=== PATIENT | female | born 1975 | race Caucasian/White ===

== ENCOUNTER 2017-03-07 16:08 | Emergency (ER) | payer BC, OTHER ==
[2017-03-07 17:11] LABS: APPEARANCE,URINE CLEAR; BILIRUBIN,URINE NEGATIVE (NEGATIVE); GLUCOSE, URINE NEGATIVE (NEGATIVE); KETONES,URINE NEGATIVE (NEGATIVE); LEUKOCYTE ESTERASE,URINE NEGATIVE (NEGATIVE); NITRITE,URINE NEGATIVE (NEGATIVE); PROTEIN,URINE NEGATIVE (NEGATIVE); URINE SPECIFIC GRAVITY 1.005; UROBILINOGEN,URINE NEGATIVE mg/dL (<2.0)
--- NOTE | 2017-03-07 17:50 | ER Document Report ---
ED Medical Screen (RME) - General Chief Complaint: Flank Pain Stated Complaint: BACK PAIN, FLANK PAIN,NAUSEA Notes: 41-year-old female patient reports flank pain off and on for the past 5 days. She states the pain goes around to the front and the abdomen on both sides. She thinks she may have passed the stone several days ago. She also reports seeing what looks like sand in her urine. She has been drinking a lot of fluids. Tylenol does help some. She does not have a history of kidney stones. 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 Brief exam shows her to be quite tender and palpating the paraspinal lumbar muscles. I have greeted and performed a rapid initial assessment of this patient. A comprehensive ED assessment and evaluation of the patient, analysis of test results and completion of the medical decision making process will be conducted by additional ED providers. TRAVEL OUTSIDE OF THE [place] IN LAST 30 DAYS: No - Related Data Allergies/Adverse Reactions: bupropion HCl [From Wellbutrin] Allergy (Severe, Verified 03/07/17 17:43) Hives Penicillins Allergy (Severe, Verified 03/07/17 17:43) Anaphylaxis esomeprazole [From Nexium] Allergy (Intermediate, Verified 03/07/17 17:43) palpitations latex [Latex] Allergy (Intermediate, Verified 03/07/17 17:43) ICHING Past Medical History - Social History Family history: CAD, CVA, Hypertension - Past Medical History Cardiac Medical History: Denies: Hx Coronary Artery Disease, Hx Heart Attack, Hx Hypertension Pulmonary Medical History: Reports: Hx Bronchitis - 2009, Hx Pneumonia - APRIL 2013 Denies: Hx Asthma, Hx COPD Neurological Medical History: Denies: Hx Cerebrovascular Accident, Hx Seizures Renal/ Medical History: Denies: Hx Peritoneal Dialysis GI Medical History: Reports: Hx Gastroesophageal Reflux Disease, Hx Endoscopy Musculoskeltal Medical History: Reports Hx Arthritis - KNEES Psychiatric Medical History: Reports: Hx Depression Past Surgical History: Reports: Hx Gynecologic Surgery, Hx Oral Surgery. Denies : Hx Cholecystectomy, Hx Hysterectomy - Immunizations Hx Diphtheria, Pertussis, Tetanus Vaccination: Yes - unk Physical Exam - Vital signs Vitals: Temp Pulse Resp BP Pulse Ox 98.8 F 89 16 122/80 100 03/07/17 16:43 03/07/17 16:43 03/07/17 16:43 03/07/17 16:43 03/07/17 16:43 Course - Vital Signs Vital signs: Temp Pulse Resp BP Pulse Ox 98.8 F 89 16 122/80 100 03/07/17 16:43 03/07/17 16:43 03/07/17 16:43 03/07/17 16:43 03/07/17 16:43 - Laboratory Laboratory results interpreted by me: 03/07/17 16:44 Urine Ascorbic Acid 40 H
[2017-03-07 18:09] LABS: ABSOLUTE LYMPHOCYTES (AUTO) 1.8 10^3/uL (0.5-4.7); ABSOLUTE MONOCYTES (AUTO) 0.3 10^3/uL (0.1-1.4); ABSOLUTE NEUT (AUTO) 6.2 10^3/uL (1.7-8.2); BASOPHILS % (AUTO) 0.4 % (0-2); EOSINOPHILS % (AUTO) 0.4 % (0-6); LYMPHOCYTES % (AUTO) 21.7 % (13-45); MEAN CORPUSCULAR VOLUME 88 fl (80-97); MONOCYTES % (AUTO) 3.1 % (3-13); RED BLOOD COUNT 4.66 10^6/uL (3.72-5.28); RED CELL DISTRIBUTION WIDTH 13.6 % (11.5-14.0); SEGMENTED NEUTROPHILS % (AUTO) 74.4 % (42-78); WHITE BLOOD COUNT 8.4 10^3/uL (4.0-10.5)
[2017-03-07 18:30] LABS: ALANINE AMINOTRANSFERASE 44 U/L (9-52); ALBUMIN 4.8 g/dL (3.5-5.0); ALKALINE PHOSPHATASE 80 U/L (38-126); ANION GAP 13 (5-19); ASPARTATE AMINO TRANSFERASE 33 U/L (14-36); BILIRUBIN,DIRECT 0.2 mg/dL (0.0-0.4); BILIRUBIN,TOTAL 0.6 mg/dL (0.2-1.3); BLOOD UREA NITROGEN 10 mg/dL (7-20); CALCIUM 9.6 mg/dL (8.4-10.2); CARBON DIOXIDE 27 mmol/L (22-30); CHLORIDE 104 mmol/L (98-107); CREATININE RESULT 0.55 mg/dL (0.52-1.25); GLUCOSE 94 mg/dL (75-110); POTASSIUM 4.5 mmol/L (3.6-5.0); SODIUM 143.6 mmol/L (137-145); TOTAL PROTEIN 7.6 g/dL (6.3-8.2)
[2017-03-07] MEDS ORDERED: ACETAMINOPHEN 325 MG TABLET PO ONE (22:51)
--- NOTE | 2017-03-07 22:53 | ER Document Report ---
ED General - General Chief Complaint: Flank Pain Stated Complaint: BACK PAIN, FLANK PAIN,NAUSEA Notes: Patient is a 41-year-old female with past medical history of choledocholithiasis status post cholecystectomy who presents with 3 days of bilateral flank pain worse on the right which radiates into her bilateral lower abdomen. No history of similar symptoms in the past. Nothing improves or worsens her pain. She has not seen her primary doctor regarding today's concerns. She states that she feels that she has passed several kidney stones during this time period and has had "shellie" urine. Notes associated nausea without vomiting. No chest pain, shortness of breath, pleuritic pain, fever, or diarrhea. She is continued to pass flatus and have normal bowel movements. She has continued to tolerate oral intake. TRAVEL OUTSIDE OF THE [place] IN LAST 30 DAYS: No - Related Data Allergies/Adverse Reactions: bupropion HCl [From Wellbutrin] Allergy (Severe, Verified 03/07/17 17:43) Hives Penicillins Allergy (Severe, Verified 03/07/17 17:43) Anaphylaxis esomeprazole [From Nexium] Allergy (Intermediate, Verified 03/07/17 17:43) palpitations latex [Latex] Allergy (Intermediate, Verified 03/07/17 17:43) ICHING Past Medical History - General Information source: Patient - Social History Smoking Status: Never Smoker Frequency of alcohol use: None Drug Abuse: None Lives with: Spouse/Significant other Family History: Reviewed & Not Pertinent Patient has suicidal ideation: No Patient has homicidal ideation: No - Past Medical History Cardiac Medical History: Denies: Hx Coronary Artery Disease, Hx Heart Attack, Hx Hypertension Pulmonary Medical History: Reports: Hx Bronchitis - 2009, Hx Pneumonia - APRIL 2013 Denies: Hx Asthma, Hx COPD Neurological Medical History: Denies: Hx Cerebrovascular Accident, Hx Seizures Renal/ Medical History: Denies: Hx Peritoneal Dialysis GI Medical History: Reports: Hx Gastroesophageal Reflux Disease, Hx Endoscopy Musculoskeltal Medical History: Reports Hx Arthritis - KNEES Psychiatric Medical History: Reports: Hx Depression Past Surgical History: Reports: Hx Gynecologic Surgery, Hx Oral Surgery. Denies : Hx Cholecystectomy, Hx Hysterectomy - Immunizations Hx Diphtheria, Pertussis, Tetanus Vaccination: Yes - unk Review of Systems - Review of Systems Notes: Constitutional: Negative for fever. HENT: Negative for sore throat. Eyes: Negative for visual changes. Cardiovascular: Negative for chest pain. Respiratory: Negative for shortness of breath. Gastrointestinal: Positive for bilateral flank pain and nausea Genitourinary: Negative for dysuria. Musculoskeletal: Negative for back pain. Skin: Negative for rash. Neurological: Negative for headaches, weakness or numbness. 10 point ROS negative except as marked above and in HPI. Physical Exam - Vital signs Vitals: Temp Pulse Resp BP Pulse Ox 98.8 F 89 16 122/80 100 03/07/17 16:43 03/07/17 16:43 03/07/17 16:43 03/07/17 16:43 03/07/17 16:43 Interpretation: Normal Notes: PHYSICAL EXAMINATION: GENERAL: Well-appearing, well-nourished and in no acute distress. HEAD: Atraumatic, normocephalic. EYES: Pupils equal round and reactive to light, extraocular movements intact, sclera anicteric, conjunctiva are normal. ENT: nares patent, oropharynx clear without exudates. Moist mucous membranes. NECK: Normal range of motion, supple without lymphadenopathy LUNGS: Breath sounds clear to auscultation bilaterally and equal. No wheezes rales or rhonchi. HEART: Regular rate and rhythm without murmurs ABDOMEN: Bilateral mild CVA tenderness. Abdomen is Soft, nontender, normoactive bowel sounds. No guarding, no rebound. No masses appreciated. EXTREMITIES: Normal range of motion, no pitting or edema. No cyanosis. NEUROLOGICAL: No focal neurological deficits. Moves all extremities spontaneously and on command. PSYCH: Normal mood, normal affect. SKIN: Warm, Dry, normal turgor, no rashes or lesions noted. Course - Re-evaluation Re-evalutation: 03/07/17 22:52 Patient presents undifferentiated bilateral flank pain worse on the left. On exam she is overall very well in appearance, vitals within normal limits and in no acute distress. Conversing with ease. She has no focal abdominal tenderness. No rebound or guarding. She does have mild bilateral CVA tenderness worse on the right. I do not suspect an acute bowel perforation, bowel obstruction, mesenteric ischemia, pancreatitis, acute hepatitis, ovarian torsion, ruptured ovarian cyst or TOA based on her exam or history. She has already had a cholecystectomy 2 years ago. I did not suspect a retained stone given the distance of her cholecystectomy. Patient has no prior history of kidney stones and given her urine does not contain blood and she has somewhat of an undifferentiated picture, we have reviewed the risks and benefits of proceeding with contrasted CT. She has elected to obtain the study. 03/08/17 00:07 CT scan unremarkable which is what I had anticipated based on clinical history and exam. No evidence of nephrolithiasis. Patient's pain is overall improved at this time. At this time the exact etiology of her pain is uncertain and I have informed the patient that she needs to return to the emergency department immediately for any new or worsening symptoms as we have not had a clear diagnosis for her symptoms today. I do not suspect an acute life-threatening diagnosis at this time based on her vitals, exam, clinical history, negative CT imaging, and her overall well appearance.At this time will discharge with return precautions and follow-up recommendations. Verbal discharge instructions given a the bedside and opportunity for questions given. Medication warnings reviewed. Patient is in agreement with this plan and has verbalized understanding of return precautions and the need for primary care follow-up in the next 24-72 hours. - Vital Signs Vital signs: Temp Pulse Resp BP Pulse Ox 98 F 79 16 128/74 H 100 03/08/17 00:25 03/08/17 00:25 03/08/17 00:25 03/08/17 00:25 03/08/17 00:25 - Laboratory Result Diagrams: 03/07/17 17:58 03/07/17 17:58 Laboratory results interpreted by me: 03/07/17 16:44 Urine Ascorbic Acid 40 H - Diagnostic Test Radiology reviewed: Reports reviewed Discharge - Discharge Clinical Impression: Bilateral flank pain Condition: Good Disposition: HOME, SELF-CARE Additional Instructions: The exact cause of her pain is unclear today but your labs, CT scan, and history do not suggest any acute life-threatening cause. I suspect that this may be related to the muscles of your back or possible kidney stones that you have already passed. You can take Tylenol 1000 mg every 6 hours as needed for pain. You can use the muscle relaxants at night as needed for pain that is not controlled by Tylenol. Return if your pain fails to improve, you have worsening pain, persistent vomiting, fever greater than 101F, or any other symptoms that are worrisome to you. Please follow-up with your primary care doctor in the next 1-2 days. Prescriptions: Cyclobenzaprine HCl [Flexeril 10 mg Tablet] 10 mg PO QHS PRN #15 tab PRN Reason: Referrals: TOM MENDES MD [Primary Care Provider] - Follow up tomorrow
[2017-03-08 01:25] VITALS: BP 128/74
== END 2017-03-08 00:25 | disposition home or self-care (01) ==
LOC: ER 16:08
DX: R10.9 Unspecified abdominal pain (principal); R11.0 Nausea; Z88.8 Allergy status to other drugs, medicaments and biological substances; Z88.0 Allergy status to penicillin; Z91.040 Latex allergy status; Z87.19 Personal history of other diseases of the digestive system; Z90.49 Acquired absence of other specified parts of digestive tract
CPT/HCPCS: 36415; 76380; 80053; 81001; 84703; 85025; 99284

== ENCOUNTER 2017-07-24 12:03 | Emergency (ER) | payer BC ==
--- NOTE | 2017-07-24 12:31 | ER Document Report ---
ED Medical Screen (RME) - General Chief Complaint: Abdominal Pain Stated Complaint: ABDOMINAL PAIN Time Seen by Provider: 07/24/17 12:30 Notes: Patient states for roughly 1 week she has had right flank and lower abdominal pain. It is been intermittent. She has had nausea but no vomiting. She has not been constipated but her stools have been smaller in caliber. She denies any significant dysuria urgency or frequency. No vaginal symptoms. She has had a previous cholecystectomy but no other abdominal surgeries. She denies any chronic medical conditions. She states she has felt weak and had decreased appetite. TRAVEL OUTSIDE OF THE [place] IN LAST 30 DAYS: No - Related Data Allergies/Adverse Reactions: bupropion HCl [From Wellbutrin] Allergy (Severe, Verified 07/24/17 12:21) Hives Penicillins Allergy (Severe, Verified 07/24/17 12:21) Anaphylaxis esomeprazole [From Nexium] Allergy (Intermediate, Verified 07/24/17 12:21) palpitations latex [Latex] Allergy (Intermediate, Verified 07/24/17 12:21) ICHING Past Medical History - Social History Frequency of alcohol use: None Drug Abuse: None Family history: CAD, CVA, Hypertension - Past Medical History Cardiac Medical History: Denies: Hx Coronary Artery Disease, Hx Heart Attack, Hx Hypertension Pulmonary Medical History: Reports: Hx Bronchitis - 2009, Hx Pneumonia - APRIL 2013 Denies: Hx Asthma, Hx COPD Neurological Medical History: Denies: Hx Cerebrovascular Accident, Hx Seizures Renal/ Medical History: Denies: Hx Peritoneal Dialysis GI Medical History: Reports: Hx Gastroesophageal Reflux Disease, Hx Endoscopy Musculoskeltal Medical History: Reports Hx Arthritis - KNEES Psychiatric Medical History: Reports: Hx Depression Past Surgical History: Reports: Hx Gynecologic Surgery, Hx Oral Surgery. Denies : Hx Cholecystectomy, Hx Hysterectomy - Immunizations Hx Diphtheria, Pertussis, Tetanus Vaccination: Yes - unk Physical Exam - Vital signs Vitals: Temp Pulse Resp BP Pulse Ox 99.1 F 85 20 118/71 100 07/24/17 12:23 07/24/17 12:23 07/24/17 12:23 07/24/17 12:23 07/24/17 12:23 Course - Vital Signs Vital signs: Temp Pulse Resp BP Pulse Ox 99.1 F 85 20 118/71 100 07/24/17 12:23 07/24/17 12:23 07/24/17 12:23 07/24/17 12:23 07/24/17 12:23
[2017-07-24 13:17] LABS: ABSOLUTE BASOPHILS # (AUTO) 0.1 10^3/uL (0.0-0.2); ABSOLUTE MONOCYTES (AUTO) 0.4 10^3/uL (0.1-1.4); ABSOLUTE NEUT (AUTO) 6.1 10^3/uL (1.7-8.2); BASOPHILS % (AUTO) 1.4 % (0-2); EOSINOPHILS % (AUTO) 0.6 % (0-6); HEMATOCRIT 43.2 % (36.0-47.0); HEMOGLOBIN 14.6 g/dL (12.0-15.5); HGB HCT DIFFERENCE 0.6; LYMPHOCYTES % (AUTO) 22.7 % (13-45); MEAN CORPUSCULAR HEMOGLOBIN 30.3 pg (27.0-33.4); MEAN CORPUSCULAR HGB CONC 33.9 g/dL (32.0-36.0); MEAN CORPUSCULAR VOLUME 90 fl (80-97); RED BLOOD COUNT 4.83 10^6/uL (3.72-5.28); RED CELL DISTRIBUTION WIDTH 13.6 % (11.5-14.0); SEGMENTED NEUTROPHILS % (AUTO) 70.3 % (42-78); WHITE BLOOD COUNT 8.7 10^3/uL (4.0-10.5)
[2017-07-24 13:21] LABS: APPEARANCE,URINE SLIGHTLY-CLOUDY; BILIRUBIN,URINE NEGATIVE (NEGATIVE); GLUCOSE, URINE NEGATIVE (NEGATIVE); KETONES,URINE TRACE mg/dL (NEGATIVE); LEUKOCYTE ESTERASE,URINE NEGATIVE (NEGATIVE); NITRITE,URINE NEGATIVE (NEGATIVE); PROTEIN,URINE 30 mg/dL (NEGATIVE); URINE SPECIFIC GRAVITY 1.038; UROBILINOGEN,URINE NEGATIVE mg/dL (<2.0)
[2017-07-24 13:33] LABS: ALANINE AMINOTRANSFERASE 35 U/L (9-52); ALBUMIN 4.8 g/dL (3.5-5.0); ALKALINE PHOSPHATASE 78 U/L (38-126); ANION GAP 13 (5-19); ASPARTATE AMINO TRANSFERASE 25 U/L (14-36); BILIRUBIN,DIRECT 0.2 mg/dL (0.0-0.4); BILIRUBIN,TOTAL 0.8 mg/dL (0.2-1.3); BLOOD UREA NITROGEN 10 mg/dL (7-20); CALCIUM 9.9 mg/dL (8.4-10.2); CARBON DIOXIDE 24 mmol/L (22-30); CHLORIDE 104 mmol/L (98-107); CREATININE RESULT 0.59 mg/dL (0.52-1.25); GLUCOSE 93 mg/dL (75-110); POTASSIUM 4.3 mmol/L (3.6-5.0); SODIUM 140.7 mmol/L (137-145); TOTAL PROTEIN 7.6 g/dL (6.3-8.2)
--- NOTE | 2017-07-24 14:20 | ER Document Report ---
ED GI/ - General Chief Complaint: Abdominal Pain Stated Complaint: ABDOMINAL PAIN Time Seen by Provider: 07/24/17 12:30 Mode of Arrival: Ambulatory Information source: Patient Notes: 41 yo normally healthy, ex smoker,GERD, with intermittent abdominal pain since last saturday (9 days).Last night 4/5 Very uncomfortable, burning radiated to flank, and was mostly on the side. Nausea with decreased appetite. worked out at gym saturday during day. Here to find out what this pain is. PMH: cholecystectomy, ? kidney stone february 2017. No v/d. No rash. No constipation or diarrhea. not solid since cholecystectomy, thin ribbons of stool. Pain level 2/5. TRAVEL OUTSIDE OF THE [place] IN LAST 30 DAYS: No - Related Data Allergies/Adverse Reactions: bupropion HCl [From Wellbutrin] Allergy (Severe, Verified 07/24/17 12:21) Hives Penicillins Allergy (Severe, Verified 07/24/17 12:21) Anaphylaxis esomeprazole [From Nexium] Allergy (Intermediate, Verified 07/24/17 12:21) palpitations latex [Latex] Allergy (Intermediate, Verified 07/24/17 12:21) ICHING Past Medical History - General Information source: Patient - Social History Smoking Status: Former Smoker Frequency of alcohol use: None Drug Abuse: None Family History: Reviewed & Not Pertinent Patient has suicidal ideation: No Patient has homicidal ideation: No Pulmonary Medical History: Reports: Hx Bronchitis - 2009, Hx Pneumonia - APRIL 2013 Renal/ Medical History: Denies: Hx Peritoneal Dialysis GI Medical History: Reports: Hx Gastroesophageal Reflux Disease, Hx Endoscopy Musculoskeltal Medical History: Reports Hx Arthritis - KNEES Psychiatric Medical History: Reports: Hx Depression Past Surgical History: Reports: Hx Gynecologic Surgery, Hx Oral Surgery - Immunizations Hx Diphtheria, Pertussis, Tetanus Vaccination: Yes - unk Review of Systems - Review of Systems Constitutional: See HPI EENT: No symptoms reported Cardiovascular: No symptoms reported Respiratory: No symptoms reported Gastrointestinal: See HPI Genitourinary: No symptoms reported Female Genitourinary: No symptoms reported Musculoskeletal: No symptoms reported Skin: No symptoms reported Hematologic/Lymphatic: No symptoms reported Neurological/Psychological: No symptoms reported Physical Exam - Vital signs Vitals: Temp Pulse Resp BP Pulse Ox 99.1 F 85 20 118/71 100 07/24/17 12:23 07/24/17 12:23 07/24/17 12:23 07/24/17 12:23 07/24/17 12:23 Interpretation: Normal - General General appearance: Appears well, Alert In distress: None - HEENT Head: Normocephalic, Atraumatic Eyes: Normal Conjunctiva: Normal Pupils: PERRL Mucous membranes: Dry Pharynx: Normal Neck: Supple. No: Lymphadenopathy - Respiratory Respiratory status: No respiratory distress Chest status: Nontender Breath sounds: Normal Chest palpation: Normal - Cardiovascular Rhythm: Regular Heart sounds: Normal auscultation Murmur: No - Abdominal Inspection: Normal Distension: No distension Bowel sounds: Normal Tenderness: Tender - right pelvis. No: McBurney's point Organomegaly: No organomegaly. No: Hepatomegaly, Splenomegaly - Genitourinary External exam: Normal Speculum exam: Cervix closed Vaginal bleeding: Mild Bimanuel exam: No: Cervical motion tender - Back Back: Normal, Tender - point tender right flank. No: CVA tenderness - Extremities General upper extremity: Normal inspection, Nontender, Normal color, Normal ROM , Normal temperature General lower extremity: Normal inspection, Nontender, Normal color, Normal ROM , Normal temperature, Normal weight bearing. No: Juan's sign - Neurological Neuro grossly intact: Yes Cognition: Normal Orientation: AAOx4 Clune Coma Scale Eye Opening: Spontaneous Lorena Coma Scale Verbal: Oriented Clune Coma Scale Motor: Obeys Commands Lorena Coma Scale Total: 15 Speech: Normal Motor strength normal: LUE, RUE, LLE, RLE Sensory: Normal - Psychological Associated symptoms: Normal affect, Normal mood - Skin Skin Temperature: Warm Skin Moisture: Dry Skin Color: Normal Skin irregularity: negative: Rash Course - Re-evaluation Re-evalutation: 07/24/17 18:06 labs normal except spec gravity of urine 1.038, IV fluid and ultrasounds ordered. 07/24/17 18:25 right sided fibroid intramural per radiologist call, neither ovary were seen. started menses (on time) here in ER. right side =TV was more painful. Renal US no hyrdro, jets normal. 07/24/17 18:48 pelvic done, scant bleeding, std cx sent will call pt tonight if needs tx, referring to obgyn since ovaries not visualiex. - Vital Signs Vital signs: Temp Pulse Resp BP Pulse Ox 99.1 F 85 20 118/71 100 07/24/17 12:23 07/24/17 12:23 07/24/17 12:23 07/24/17 12:23 07/24/17 12:23 - Laboratory Result Diagrams: 07/24/17 12:50 07/24/17 12:50 Laboratory results interpreted by me: 07/24/17 12:50 Urine Protein 30 H Urine Ketones TRACE H Urine Ascorbic Acid 40 H Discharge - Discharge Clinical Impression: right pelvic pain, right flank pain Uterine fibroid Qualifiers: Uterine leiomyoma location: intramural Qualified Code(s): D25.1 - Intramural leiomyoma of uterus Condition: Good Disposition: HOME, SELF-CARE Instructions: Acetaminophen, Use of [id number] Ibuprofen ([facility]), Pelvic Pain ([facility]) Additional Instructions: see obstetrics nurse practitioner for the firbroid and since the ovaries were not seen on ultrasound may need further imaging return to er if increased pain or symptoms copy of imaging and labs given to you Please complete the patient satisfaction survey if you get one, and return it.. If you do not receive a survey, then you can go to the [facility] website, [email or web address] and place your comments about your very good care. Thank you very much. It was a pleasure being your medical provider today. Forms: Return to Work Referrals: NEIL SMART MD [ACTIVE STAFF] - Follow up as needed
[2017-07-24] MEDS ORDERED: NORMAL SALINE 1000 ML 1,000 ML IV PRN (14:42)
--- NOTE | 2017-07-24 18:06 | RADIOLOGY REPORT (SQ) ---
EXAM DESCRIPTION: U/S NON OB PEL TV W/DOPPLER COMPLETED DATE/TIME: 07/24/2017 5:42 pm REASON FOR STUDY: right pelvis, right flank pain COMPARISON: None. TECHNIQUE: Dynamic and static grayscale images acquired of the pelvis via transvaginal approach and recorded on PACS. Additional selected color Doppler and spectral images recorded. LIMITATIONS: None. FINDINGS: UTERUS: There is a prominent fibroid measures 7.6 x 5.6 x 5.3 cm. ENDOMETRIAL STRIPE: No focal or generalized thickening. No masses. CERVIX: No nabothian cysts. RIGHT OVARY: Ovary not visualized. RIGHT OVARY DOPPLER: Ovary not visualized. LEFT OVARY: Ovary not visualized. LEFT OVARY DOPPLER: Ovary not visualized. FREE FLUID: None noted. OTHER: No other significant finding. MEASUREMENTS: UTERUS: 7.1 x 8.2 x 2.2 cm. ENDOMETRIAL STRIPE: 14.0 mm. RIGHT OVARY: Not visualized. LEFT OVARY: Not visualized. IMPRESSION: Prominent uterine fibroid situated right of midline. This measures 7.6 x 5.6 x 5.3 cm. Ovaries are not visualized. TECHNICAL DOCUMENTATION: JOB ID: [id number]- All Rights Reserved
--- NOTE | 2017-07-24 18:11 | RADIOLOGY REPORT (SQ) ---
EXAM DESCRIPTION: U/S RETROPERITON (RENAL/AORTA) COMPLETED DATE/TIME: 07/24/2017 5:38 pm REASON FOR STUDY: flank pain, ct done in February 2017 COMPARISON: None. TECHNIQUE: Dynamic and static grayscale images acquired of the kidneys and bladder and recorded on P ACS. Additional selected color Doppler and spectral images recorded. LIMITATIONS: None. FINDINGS: RIGHT KIDNEY: Normal size, 10.9 cm. Normal echogenicity. No solid or suspicious masses. No hydronephrosis. No calcifications. LEFT KIDNEY: Normal size, 10.2 cm. Normal echogenicity. No solid or suspicious masses. No hydronephr osis. No calcifications. BLADDER: No masses. Bilateral ureteral jets were seen. OTHER FINDINGS: No other significant finding. IMPRESSION: NORMAL RENAL AND BLADDER ULTRASOUND. TECHNICAL DOCUMENTATION: JOB ID: [id number] [employer]- All Rights Reserved
[2017-07-24 19:09] VITALS: BP 121/73
[2017-07-24 20:24] LABS: CHLAM PCR NOT DETECTED (NOT DETECT)
== END 2017-07-24 19:09 | disposition home or self-care (01) ==
LOC: ER 12:03
DX: D25.1 Intramural leiomyoma of uterus (principal); R10.2 Pelvic and perineal pain; R10.9 Unspecified abdominal pain; R11.0 Nausea; R63.0 Anorexia; Z87.891 Personal history of nicotine dependence
CPT/HCPCS: 99284; 36415; 87210; 85025; 81025; 80053; 81001; 87491; 87591; 76770; 76830; 93976; J7030

== ENCOUNTER 2018-04-09 08:57 | Emergency (ER) | payer BC, OTHER ==
[2018-04-09] MEDS ORDERED: KETOROLAC TROMETHAMINE INJ/PF 30 MG/1 ML SDV IV ONE (09:34)
[2018-04-09] MEDS ORDERED: NORMAL SALINE 1000 ML 1,000 ML IV PRN (09:34)
--- NOTE | 2018-04-09 09:46 | ER Document Report ---
ED General - General Chief Complaint: Flank Pain Stated Complaint: BILATERAL FLANK PAIN Time Seen by Provider: 04/09/18 09:30 Mode of Arrival: Ambulatory Information source: Patient TRAVEL OUTSIDE OF THE [place] IN LAST 30 DAYS: No - HPI Notes: 42-year-old female presents to the emergency room today for complaints of right lower quadrant abdominal pain with right flank pain that has been occurring for the last week, Lanoxin maintenance pains with nausea. Last menstrual period was March 22, 2018. 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 Denies fevers, chills, chest pain,palpitations, shortness of breath, dyspnea, vomiting, diarrhea, hematuria,blurred vision, double vision , loss of vision, speech changes, LH, dizziness, syncope, headaches, wheezing, ST, URI, neck pain, weakness, bowel or bladder dysfunction, saddle anesthesia, numbness or tingling in bilateral upper or lower extremities equally, muscle paralysis, weakness in bilateral upper or lower extremities equally or rash. Denies IV drug use. - Related Data Allergies/Adverse Reactions: bupropion HCl [From Wellbutrin] Allergy (Severe, Verified 04/09/18 09:00) Hives Penicillins Allergy (Severe, Verified 04/09/18 09:00) Anaphylaxis esomeprazole [From Nexium] Allergy (Intermediate, Verified 04/09/18 09:00) palpitations latex [Latex] Allergy (Intermediate, Verified 04/09/18 09:00) ICHING Past Medical History - General Information source: Patient - Social History Smoking Status: Former Smoker Family History: Reviewed & Not Pertinent Patient has suicidal ideation: No Patient has homicidal ideation: No - Past Medical History Cardiac Medical History: Denies: Hx Coronary Artery Disease, Hx Heart Attack, Hx Hypertension Pulmonary Medical History: Reports: Hx Bronchitis - 2009, Hx Pneumonia - APRIL 2013 Denies: Hx Asthma, Hx COPD Neurological Medical History: Denies: Hx Cerebrovascular Accident, Hx Seizures Renal/ Medical History: Denies: Hx Peritoneal Dialysis GI Medical History: Reports: Hx Gastroesophageal Reflux Disease, Hx Endoscopy Musculoskeltal Medical History: Reports Hx Arthritis - KNEES Psychiatric Medical History: Reports: Hx Depression Past Surgical History: Reports: Hx Gynecologic Surgery, Hx Oral Surgery. Denies : Hx Cholecystectomy, Hx Hysterectomy - Immunizations Hx Diphtheria, Pertussis, Tetanus Vaccination: Yes - unk Review of Systems - Review of Systems Constitutional: No symptoms reported EENT: No symptoms reported Cardiovascular: No symptoms reported Respiratory: No symptoms reported Gastrointestinal: See HPI Genitourinary: No symptoms reported Female Genitourinary: No symptoms reported Musculoskeletal: No symptoms reported Skin: No symptoms reported Hematologic/Lymphatic: No symptoms reported Neurological/Psychological: No symptoms reported Physical Exam - Vital signs Vitals: Temp Pulse Resp BP Pulse Ox 97.9 F 89 18 125/66 99 04/09/18 09:03 04/09/18 09:03 04/09/18 09:03 04/09/18 09:03 04/09/18 09:03 - Notes Notes: PHYSICAL EXAMINATION: GENERAL: Well-appearing, well-nourished and in no acute distress. HEAD: Atraumatic, normocephalic. EYES: Pupils equal round and reactive to light, extraocular movements intact, conjunctiva are normal. ENT: Nares patent, oropharynx clear without exudates. Moist mucous membranes. NECK: Normal range of motion, supple without lymphadenopathy LUNGS: Breath sounds clear to auscultation bilaterally and equal. No wheezes rales or rhonchi. HEART: Regular rate and rhythm without murmurs ABDOMEN: Soft,nondistended abdomen. Right lower quadrant tenderness on palpation with rebound, right flank tenderness, no left-sided CVA tenderness appreciated. no guarding, no rebound in left upper quadrant, left lower quadrant or right upper quadrant on palpation no masses appreciated. Female : deferred Musculoskeletal: Normal range of motion, no pitting or edema. No cyanosis. NEUROLOGICAL: Cranial nerves grossly intact. Normal speech, normal gait. Normal sensory, motor exams PSYCH: Normal mood, normal affect. SKIN: Warm, Dry, normal turgor, no rashes or lesions noted. Course - Re-evaluation Re-evalutation: Healthy 42-year-old female who is afebrile, vitals stable no distress presents for evaluation of worsening right lower quadrant right flank pain that radiates to pelvis for the last week. CBC negative for leukocytosis or anemia, CMP negative for hepatic dysfunction, electrolytes unremarkable. Urinalysis shows unremarkable. CT abdomen and pelvis with IV and oral contrast negative for any acute findings, appendix normal and visualized. Transvaginal ultrasound shows a fibroid in the uterus measuring approximately 5.4 cm 7.6 cm, no free fluid noted. On reevaluation, patient states that she feels much better after IV hydration and medication. Discussed with patient that she needs to follow-up with [facility] for possible fibroid removal, advised to stop taking topical estrogen as this also could be potentiating fibroid growth. I have reevaluated this patient multiple times and no significant life threatening changes, no signs of toxicity, sepsis or peritonitis are noted. The patient and I have discussed the diagnosis and risks, and we agree with discharging home and close follow-up. We also discussed returning to the Emergency Department immediately if new or worsening symptoms occur with the understanding that symptoms and presentations can change. At this time will discharge with return precautions and follow-up recommendations. Verbal discharge instructions given a the bedside and opportunity for questions given. We have discussed the symptoms which are most concerning (e.g., saddle anesthesia, fever, urinary or bowel incontinence or retention, changing or worsening pain) that necessitate immediate return. Medication warnings reviewed. Patient is in agreement with this plan and has verbalized understanding of return precautions and the need for primary care follow-up in the next 24-72 hours. Patient verbalized understanding of plan of care and agree with plan of care. - Vital Signs Vital signs: Temp Pulse Resp BP Pulse Ox 97.7 F 100 16 123/81 98 04/09/18 14:01 04/09/18 14:01 04/09/18 14:01 04/09/18 14:01 04/09/18 14:01 - Laboratory Result Diagrams: 04/09/18 10:18 04/09/18 10:18 Laboratory results interpreted by me: 04/09/18 04/09/18 09:25 10:18 Creatinine 0.51 L AST 50 H Urine Ascorbic Acid 40 H Discharge - Discharge Clinical Impression: Lower abdominal pain Fibroid, uterine Qualifiers: Uterine leiomyoma location: unspecified location Qualified Code(s): D25.9 - Leiomyoma of uterus, unspecified Condition: Good Disposition: HOME, SELF-CARE Instructions: Pelvic Pain ([facility]) Additional Instructions: Pelvic Pain There are many causes of pain in the pelvic area. The cause could be the tubes, ovaries, uterus, intestines, appendix, pelvic muscles and connective tissue, or the urinary tract. The cause of your pelvic pain is not clear. However, it seems safe to treat you outside the hospital. If the pain sounds like a temporary problem, we sometimes wait to see if it goes away. Other patients may need additional tests, such as pelvic ultrasound or cultures. Conditions may change. Call us or come back for reexamination if any problems occur, such as: (1) Pain that becomes more severe, steady, or becomes concentrated in one specific area. Also, pain that is more severe with movement or coughing. (2) Vomiting that persists or becomes more frequent. (3) Blood in the vomitus, urine, or bowel movements. Blood in the stool may have a tarry or black appearance. (4) Shaking chills or fever greater than 100 degrees. (5) The abdomen becomes more distended or swollen. (6) Bowel movements cease. (7) Heavy vaginal bleeding. Fibroids Fibroids are benign growths in the uterus. They can cause enlargement of the uterus, irregular bleeding, sever bleeding with periods, and abdominal pain. Anemia may result if periods are heavy. Fibroids tend to grow until menopause, then slowly shrink. If fibroids cause severe symptoms, they can be treated surgically. Call or return if vaginal bleeding or pain becomes severe. Prescriptions: Meloxicam 7.5 mg PO DAILY #7 tablet Ondansetron [Zofran Odt 4 mg Tablet] 1 - 2 tab PO Q4H PRN #15 tab.rapdis PRN Reason: For Nausea/Vomiting Forms: Return to Work Referrals: TOM MENDES MD [Primary Care Provider] - Follow up in 3-5 days MELY YO MD [ACTIVE STAFF] - Follow up in 3-5 days
[2018-04-09 09:59] LABS: APPEARANCE,URINE CLEAR; BILIRUBIN,URINE NEGATIVE (NEGATIVE); COLOR,URINE YELLOW; GLUCOSE, URINE NEGATIVE (NEGATIVE); KETONES,URINE NEGATIVE (NEGATIVE); LEUKOCYTE ESTERASE,URINE NEGATIVE (NEGATIVE); NITRITE,URINE NEGATIVE (NEGATIVE); PROTEIN,URINE NEGATIVE (NEGATIVE); URINE SPECIFIC GRAVITY 1.013; UROBILINOGEN,URINE NEGATIVE mg/dL (<2.0)
[2018-04-09 10:37] LABS: ABSOLUTE BASOPHILS # (AUTO) 0.1 10^3/uL (0.0-0.2); ABSOLUTE LYMPHOCYTES (AUTO) 1.6 10^3/uL (0.5-4.7); ABSOLUTE MONOCYTES (AUTO) 0.4 10^3/uL (0.1-1.4); ABSOLUTE NEUT (AUTO) 6.7 10^3/uL (1.7-8.2); BASOPHILS % (AUTO) 0.9 % (0-2); EOSINOPHILS % (AUTO) 0.3 % (0-6); HEMATOCRIT 41.6 % (36.0-47.0); HEMOGLOBIN 14.4 g/dL (12.0-15.5); LYMPHOCYTES % (AUTO) 18.3 % (13-45); MEAN CORPUSCULAR HEMOGLOBIN 30.2 pg (27.0-33.4); MEAN CORPUSCULAR HGB CONC 34.5 g/dL (32.0-36.0); MEAN CORPUSCULAR VOLUME 88 fl (80-97); MONOCYTES % (AUTO) 4.8 % (3-13); PLATELET COUNT 377 10^3/uL (150-450); RED BLOOD COUNT 4.75 10^6/uL (3.72-5.28); RED CELL DISTRIBUTION WIDTH 13.8 % (11.5-14.0); SEGMENTED NEUTROPHILS % (AUTO) 75.7 % (42-78); TOTAL CELLS COUNTED % (AUTO) 100 %; WHITE BLOOD COUNT 8.8 10^3/uL (4.0-10.5)
[2018-04-09] MEDS ORDERED: ONDANSETRON HCL INJ/PF 4 MG/2 ML SDV IV ONE (10:56)
[2018-04-09 11:01] LABS: ALANINE AMINOTRANSFERASE 46 U/L (9-52); ALBUMIN 4.7 g/dL (3.5-5.0); ALKALINE PHOSPHATASE 76 U/L (38-126); ANION GAP 14 (5-19); ASPARTATE AMINO TRANSFERASE 50 U/L (14-36); BILIRUBIN,DIRECT 0.3 mg/dL (0.0-0.4); BILIRUBIN,TOTAL 0.6 mg/dL (0.2-1.3); BLOOD UREA NITROGEN 11 mg/dL (7-20); CALCIUM 9.5 mg/dL (8.4-10.2); CARBON DIOXIDE 28 mmol/L (22-30); CHLORIDE 102 mmol/L (98-107); GLUCOSE 97 mg/dL (75-110); POTASSIUM 4.1 mmol/L (3.6-5.0); SODIUM 144.2 mmol/L (137-145); TOTAL PROTEIN 7.4 g/dL (6.3-8.2)
[2018-04-09] MEDS ORDERED: PROCHLORPERAZINE EDISYLATE INJ 10 MG/2 ML VIAL IM ONE (11:01)
--- NOTE | 2018-04-09 12:25 | RADIOLOGY REPORT (SQ) ---
EXAM DESCRIPTION: U/S NON OB PEL TV W/DOPPLER COMPLETED DATE/TIME: 04/09/2018 12:01 pm REASON FOR STUDY: RLQ pelvic tenderness, hx of fibroid COMPARISON: 07/24/2017 TECHNIQUE: Dynamic and static grayscale images acquired of the pelvis via transvaginal approach and recorded on PACS. Additional selected color Doppler and spectral images recorded. LIMITATIONS: None. FINDINGS: UTERUS: Prominent fibroid is seen, 5.4 cm in greatest diameter. Previously measured 7.6 c m greatest diameter 2016 ENDOMETRIAL STRIPE: No focal or generalized thickening. No masses. CERVIX: No nabothian cysts. RIGHT OVARY AND DOPPLER: Normal size. No worrisome masses. Normal arterial vascular flow without evid ence for torsion. LEFT OVARY AND DOPPLER: Not visualized FREE FLUID: None noted. OTHER: No other significant finding. MEASUREMENTS: UTERUS: 7.8 x 6.4 x 6.4 cm ENDOMETRIAL STRIPE: 6.3 mm RIGHT OVARY: 3.7 x 4.2 x 2.8 cm LEFT OVARY: Not visualized IMPRESSION: Prominent fibroid of the uterus, 5.4 cm greatest diameter. Previously measured 7.6 cm. TECHNICAL DOCUMENTATION: JOB ID: [id number] [employer]- All Rights Reserved Rev-04/04 Reading location - IP/workstation name: [email or web address]
--- NOTE | 2018-04-09 13:26 | RADIOLOGY REPORT (SQ) ---
EXAM DESCRIPTION: CT ABD/PELVIS WITH IV ORAL COMPLETED DATE/TIME: 04/09/2018 12:50 pm REASON FOR STUDY: RLQ abd pain, bilat flank w/ fever COMPARISON: CT abdomen pelvis without oral or IV contrast 03/07/2017 Pelvic ultrasound 07/24/2017 TECHNIQUE: CT scan of the abdomen and pelvis performed using helical scanning technique with dynamic intravenous contrast injection. Patient drank oral contrast. Images reviewed with lung, soft tissue , and bone windows. Reconstructed coronal and sagittal MPR images reviewed. Delayed images for evalua tion of the urinary system also acquired. All images stored on PACS. All CT scanners at this facility use dose modulation, iterative reconstruction, and/or weight based d osing when appropriate to reduce radiation dose to as low as reasonably achievable (ALARA). [facility]: Dose Right [facility]: CareDose [facility]: Dose Right [facility]: Teradose 4D [facility]: [email or web address] CONTRAST TYPE AND DOSE: contrast/concentration: Isovue 370.00 mg/ml; Total Contrast Delivered: 91.0 ml; Total Saline Delivered: 70.0 ml RENAL FUNCTION: Creatinine 0.51 RADIATION DOSE: CT Rad equipment meets quality standard of care and radiation dose reduction techniq ues were employed. CTDIvol: 13.1 - 17.0 mGy. DLP: 1542 mGy-cm.. LIMITATIONS: None. FINDINGS: LOWER CHEST: No significant findings. No nodules or infiltrates. LIVER: Normal size. No masses. No dilated ducts. 1 cm hemangiomas in the sub- diaphragmatic surface right lobe and left lobe liver best shown on immediate postcontrast images 12-14. These are of doub tful clinical significance. SPLEEN: Normal size. No focal lesions. PANCREAS: No masses. No significant calcifications. No adjacent inflammation or peripancreatic fluid collections. Pancreatic duct not dilated. GALLBLADDER: Surgically absent ADRENAL GLANDS: No significant masses or asymmetry. RIGHT KIDNEY AND URETER: No solid masses. No significant calcifications. No hydronephrosis or hyd roureter. LEFT KIDNEY AND URETER: No solid masses. No significant calcifications. No hydronephrosis or hydr oureter. AORTA AND VESSELS: No aneurysm. No dissection. Renal arteries, SMA, celiac without stenosis. RETROPERITONEUM: No retroperitoneal adenopathy, hemorrhage or masses. BOWEL AND PERITONEAL CAVITY: Patient drank oral contrast. No CT evidence of bowel obstruction. No f ree intraperitoneal air or fluid. No gross inflammatory changes. No diverticulitis. APPENDIX: Normal. PELVIS: No mass. No free fluid. Normal bladder. Normal size uterus and ovaries. 6 cm [place] fundal fibroid. ABDOMINAL WALL: No masses. No hernias. BONES: No significant or acute findings. OTHER: No other significant finding. IMPRESSION: NO SIGNIFICANT OR ACUTE FINDING IN THE ABDOMEN OR PELVIS ON CT SCAN WITH IV CONTRAST. TECHNICAL DOCUMENTATION: JOB ID: [id number] Quality ID # [id number]: Final reports with documentation of one or more dose reduction techniques (e.g., Au tomated exposure control, adjustment of the mA and/or kV according to patient size, use of iterative reconstruction technique) 2010 [employer]- All Rights Reserved Reading location - IP/workstation name: [email or web address]
[2018-04-09 14:05] VITALS: BP 123/81
== END 2018-04-09 14:06 | disposition home or self-care (01) ==
LOC: ER 08:57
DX: R10.31 Right lower quadrant pain (principal); D25.9 Leiomyoma of uterus, unspecified; Z87.891 Personal history of nicotine dependence
CPT/HCPCS: 99284; 36415; 87086; 83690; 84703; 85025; 80053; 81001; 76830; 93976; 74177; J1885; J0780; J7030